=== PATIENT | male | born 1995 ===

== ENCOUNTER 2023-06-17 13:49 | Outpatient (CLI) | payer OTHER | END 2023-06-17 13:50 | disposition home or self-care (01) | LOC: CSHWCC 13:49 | PROVIDERS: ATTEND Nurse Practitioner Family | DX: L89.314 Pressure ulcer of right buttock, stage 4 (principal); G82.51 Quadriplegia, C1-C4 complete | CPT/HCPCS: 11043; 99213; G0463 ==

== ENCOUNTER 2023-06-25 13:17 | Outpatient (CLI) | payer OTHER | END 2023-06-25 13:18 | disposition home or self-care (01) | LOC: CSHWCC 13:17 | PROVIDERS: ATTEND Nurse Practitioner Family | DX: L89.314 Pressure ulcer of right buttock, stage 4 (principal); G82.51 Quadriplegia, C1-C4 complete | CPT/HCPCS: 11043 ==

== ENCOUNTER 2023-07-15 17:10 | Outpatient (CLI) | payer OTHER | END 2023-07-15 17:11 | disposition home or self-care (01) | LOC: CSHWCC 17:10 | PROVIDERS: ATTEND Nurse Practitioner Family | DX: L89.314 Pressure ulcer of right buttock, stage 4 (principal); G82.51 Quadriplegia, C1-C4 complete | CPT/HCPCS: 11042; 97605 ==

== ENCOUNTER 2023-09-23 10:29 | Outpatient (CLI) | payer OTHER | END 2023-09-23 10:30 | disposition home or self-care (01) | LOC: CSHWCC 10:29 | PROVIDERS: ATTEND Nurse Practitioner Family | DX: L89.314 Pressure ulcer of right buttock, stage 4 (principal); G82.51 Quadriplegia, C1-C4 complete | CPT/HCPCS: 11042; 97605 ==

== ENCOUNTER 2023-10-07 12:51 | Outpatient (CLI) | payer OTHER | END 2023-10-07 12:52 | disposition home or self-care (01) | LOC: CSHWCC 12:51 | PROVIDERS: ATTEND Nurse Practitioner Family | DX: L89.314 Pressure ulcer of right buttock, stage 4 (principal); G82.51 Quadriplegia, C1-C4 complete | CPT/HCPCS: 11042 ==

== ENCOUNTER 2023-10-21 16:26 | Outpatient (CLI) | payer OTHER | END 2023-10-21 16:27 | disposition home or self-care (01) | LOC: CSHWCC 16:26 | PROVIDERS: ATTEND Nurse Practitioner Family | DX: L89.314 Pressure ulcer of right buttock, stage 4 (principal); G82.51 Quadriplegia, C1-C4 complete | CPT/HCPCS: 11042 ==

== ENCOUNTER 2023-11-04 13:07 | Outpatient (CLI) | payer OTHER | END 2023-11-04 13:08 | disposition home or self-care (01) | LOC: CSHWCC 13:07 | PROVIDERS: ATTEND Nurse Practitioner Family | DX: L89.314 Pressure ulcer of right buttock, stage 4 (principal); G82.51 Quadriplegia, C1-C4 complete | CPT/HCPCS: 11042 ==

== ENCOUNTER 2023-11-11 10:14 | Outpatient (CLI) | payer OTHER | END 2023-11-11 10:15 | disposition home or self-care (01) | LOC: CSHWCC 10:14 | PROVIDERS: ATTEND Nurse Practitioner Family | DX: L89.314 Pressure ulcer of right buttock, stage 4 (principal); G82.51 Quadriplegia, C1-C4 complete | CPT/HCPCS: 11042 ==

== ENCOUNTER 2023-11-18 12:53 | Outpatient (CLI) | payer OTHER | END 2023-11-18 12:54 | disposition home or self-care (01) | LOC: CSHWCC 12:53 | PROVIDERS: ATTEND Nurse Practitioner Family | DX: L89.314 Pressure ulcer of right buttock, stage 4 (principal); G82.51 Quadriplegia, C1-C4 complete | CPT/HCPCS: 11042 ==

== ENCOUNTER 2024-01-20 13:10 | Outpatient (CLI) | payer BC | END 2024-01-20 13:11 | disposition home or self-care (01) | LOC: CSHWCC 13:10 | PROVIDERS: ATTEND Nurse Practitioner Family | DX: T81.329D Deep disruption or dehiscence of operation wound, unspecified, subsequent encounter (principal); S31.819D Unspecified open wound of right buttock, subsequent encounter; G82.51 Quadriplegia, C1-C4 complete | CPT/HCPCS: 11042; 97605 ==

== ENCOUNTER 2024-02-03 15:16 | Outpatient (CLI) | payer BC | END 2024-02-03 15:17 | disposition home or self-care (01) | LOC: CSHWCC 15:16 | PROVIDERS: ATTEND Nurse Practitioner Family | DX: T81.329D Deep disruption or dehiscence of operation wound, unspecified, subsequent encounter (principal); S31.819D Unspecified open wound of right buttock, subsequent encounter; G82.51 Quadriplegia, C1-C4 complete | CPT/HCPCS: 11042; 97605 ==

== ENCOUNTER 2024-02-10 14:25 | Outpatient (CLI) | payer BC | END 2024-02-10 14:26 | disposition home or self-care (01) | LOC: CSHWCC 14:25 | PROVIDERS: ATTEND Nurse Practitioner Family | DX: T81.329D Deep disruption or dehiscence of operation wound, unspecified, subsequent encounter (principal); S31.819D Unspecified open wound of right buttock, subsequent encounter; G82.51 Quadriplegia, C1-C4 complete | CPT/HCPCS: 11042; 97605 ==

== ENCOUNTER 2024-02-17 15:29 | Outpatient (CLI) | payer BC | END 2024-02-17 15:30 | disposition home or self-care (01) | LOC: CSHWCC 15:29 | PROVIDERS: ATTEND Nurse Practitioner Family | DX: T81.329D Deep disruption or dehiscence of operation wound, unspecified, subsequent encounter (principal); S31.819D Unspecified open wound of right buttock, subsequent encounter; G82.51 Quadriplegia, C1-C4 complete | CPT/HCPCS: 11042; 97605 ==

== ENCOUNTER 2024-02-24 15:04 | Outpatient (CLI) | payer BC | END 2024-02-24 15:05 | disposition home or self-care (01) | LOC: CSHWCC 15:04 | PROVIDERS: ATTEND Nurse Practitioner Family | DX: S31.819D Unspecified open wound of right buttock, subsequent encounter (principal); T81.329D Deep disruption or dehiscence of operation wound, unspecified, subsequent encounter; G82.51 Quadriplegia, C1-C4 complete | CPT/HCPCS: 11042; 97605 ==

== ENCOUNTER 2024-03-02 13:33 | Outpatient (CLI) | payer BC | END 2024-03-02 13:34 | disposition home or self-care (01) | LOC: CSHWCC 13:33 | PROVIDERS: ATTEND Nurse Practitioner Family | DX: S31.819D Unspecified open wound of right buttock, subsequent encounter (principal); T81.329D Deep disruption or dehiscence of operation wound, unspecified, subsequent encounter; G82.51 Quadriplegia, C1-C4 complete | CPT/HCPCS: 11042; 97605 ==

== ENCOUNTER 2024-03-23 15:38 | Outpatient (CLI) | payer BC | END 2024-03-23 15:39 | disposition home or self-care (01) | LOC: CSHWCC 15:38 | PROVIDERS: ATTEND Nurse Practitioner Family | DX: L89.314 Pressure ulcer of right buttock, stage 4 (principal); S31.819D Unspecified open wound of right buttock, subsequent encounter; G82.51 Quadriplegia, C1-C4 complete | CPT/HCPCS: 11042; 99212; G0463 ==

== ENCOUNTER 2024-03-30 15:11 | Outpatient (CLI) | payer BC | END 2024-03-30 15:12 | disposition home or self-care (01) | LOC: CSHWCC 15:11 | PROVIDERS: ATTEND Nurse Practitioner Family | DX: L89.314 Pressure ulcer of right buttock, stage 4 (principal); S31.819D Unspecified open wound of right buttock, subsequent encounter; G82.51 Quadriplegia, C1-C4 complete | CPT/HCPCS: 11042 ==

== ENCOUNTER 2024-04-06 11:36 | Outpatient (CLI) | payer BC | END 2024-04-06 11:37 | disposition home or self-care (01) | LOC: CSHWCC 11:36 | PROVIDERS: ATTEND Nurse Practitioner Family | DX: L89.314 Pressure ulcer of right buttock, stage 4 (principal); S31.819D Unspecified open wound of right buttock, subsequent encounter; G82.51 Quadriplegia, C1-C4 complete | CPT/HCPCS: 11042 ==

== ENCOUNTER 2024-04-21 13:18 | Outpatient (CLI) | payer BC | END 2024-04-21 13:19 | disposition home or self-care (01) | LOC: CSHWCC 13:18 | PROVIDERS: ATTEND Nurse Practitioner Family | DX: L89.314 Pressure ulcer of right buttock, stage 4 (principal); S31.819D Unspecified open wound of right buttock, subsequent encounter; G82.51 Quadriplegia, C1-C4 complete | CPT/HCPCS: 11042 ==

== ENCOUNTER 2024-04-27 14:08 | Outpatient (CLI) | payer BC | END 2024-04-27 14:09 | disposition home or self-care (01) | LOC: CSHWCC 14:08 | PROVIDERS: ATTEND Nurse Practitioner Family | DX: S31.819D Unspecified open wound of right buttock, subsequent encounter (principal); L89.314 Pressure ulcer of right buttock, stage 4; G82.51 Quadriplegia, C1-C4 complete ==

== ENCOUNTER 2024-05-04 15:06 | Outpatient (CLI) | payer BC | END 2024-05-04 15:07 | disposition home or self-care (01) | LOC: CSHWCC 15:06 | PROVIDERS: ATTEND Nurse Practitioner Family | DX: L89.314 Pressure ulcer of right buttock, stage 4 (principal); S31.819D Unspecified open wound of right buttock, subsequent encounter; G82.51 Quadriplegia, C1-C4 complete | CPT/HCPCS: 11042 ==

== ENCOUNTER 2024-05-26 15:20 | Outpatient (CLI) | payer BC | END 2024-05-26 15:21 | disposition home or self-care (01) | LOC: CSHWCC 15:20 | PROVIDERS: ATTEND Nurse Practitioner Family | DX: S31.819D Unspecified open wound of right buttock, subsequent encounter (principal); L89.314 Pressure ulcer of right buttock, stage 4; G82.51 Quadriplegia, C1-C4 complete | CPT/HCPCS: 99212; G0463 ==